=== PATIENT | female | born 1995 | race African-American/Black ===

== ENCOUNTER 2020-02-24 16:49 | Inpatient (IN) | payer MEDICAID, OTHER ==
[~2020-02-24] VITALS: Ht 165.1 cm; Wt 47.2 kg
[2020-02-24] MEDS ORDERED: IV NS 0.9% 1,000 ML BAG IV ONE (17:00)
[2020-02-24] MEDS ORDERED: ONDANSETRON HCL/PF 4 MG/2 ML VIAL IVP ONE (17:00)
[2020-02-24] MEDS ORDERED: ONDANSETRON HCL/PF 4 MG/2 ML VIAL ONE ×2 (17:05→21:32)
--- NOTE | 2020-02-24 17:05 | NUR ---
URINE SPECIMEN COLLECTED AND SENT TO LAB.
[2020-02-24 17:14] LABS: BASOPHILS % (AUTO) 0.3 % (0.0-2.0); HEMATOCRIT 40 % (33-45); HEMOGLOBIN 13.1 g/dL (11.5-14.8); LYMPHOCYTES # (AUTO) 1.3 /CMM (0.8-4.8); LYMPHOCYTES % (AUTO) 13.9 % (20.0-44.0); MEAN CORPUSCULAR HGB CONC 33 g/dl (31.0-36.0); MEAN CORPUSCULAR VOLUME 93 fL (82-100); MONOCYTES # (AUTO) 0.4 /CMM (0.1-1.30); MONOCYTES % (AUTO) 4.2 % (2.0-12.0); NEUTROPHILS # (AUTO) 7.7 /CMM (1.8-8.9); NEUTROPHILS % (AUTO) 81.6 % (43.0-81.0); PLATELET COUNT (AUTO) 242 /CMM (150-450); RED BLOOD CELL COUNT(AUTO) 4.26 MIL/uL (4.0-5.2); WHITE BLOOD COUNT (AUTO) 9.4 K/uL (4.3-11.0)
--- NOTE | 2020-02-24 17:16 | NUR ---
BIBS FROM HOME TO ER BED 7. AAOX4. NOT IN RESP DISTRESS. AMBULATORY. CAME IN FOR RLQ ABDOMINAL PAIN, NAUSEA, VOMMITING AND DIARRHEA X 3 DAYS. PAIN IS RATED 10/10 SHARP INTERMITENT PAIN. PT REPORTS NAUSEA AND MULTIPLE EPISODES OF VOMMITING AND WATTERY DIARRHEA. URINE COLLECTED. MD WAS AT BEDSIDE FOR EVAL. ORDERS RECEIVED NOTED AND CARRIED OUT. IV LINE OBTAINED ON L AC 20G. BLOOD DRAWN AND GIVEN TO PAGINATOR. WILL CONTINUE TO MONITOR
[2020-02-24 17:29] LABS: ALBUMIN 4.5 g/dL (3.4-5.0); BILIRUBIN,DIRECT 0.2 mg/dL (0.0-0.2); BILIRUBIN,TOTAL 0.6 mg/dL (0.2-1.0); CALCIUM, SERUM 9.4 mg/dL (8.5-10.1); CREATININE 0.8 mg/dL (0.6-1.3); POTASSIUM 3.5 mmol/L (3.5-5.1); TOTAL PROTEIN, SERUM 8.6 g/dL (6.4-8.2)
[2020-02-24 17:36] LABS: APPEARANCE,URINE Slightly Cloudy (CLEAR); BILIRUBIN,URINE SMALL (NEGATIVE); BLOOD, URINE Moderate Ery/uL (NEGATIVE); COLOR,URINE Yellow (YELLOW); KETONES,URINE >=160 (NEGATIVE); LEUKOCYTE ESTERASE ,URINE Negative (NEGATIVE); NITRITE, URINE Negative (NEGATIVE); PH,URINE 5.5 (5.0-8.0); PROTEIN,URINE 30 mg/dl (NEGATIVE); UGLUCOSE Negative (NEGATIVE); UROBILINOGEN,URINE 0.2 EU/dL (0.2)
[2020-02-24 17:57] LABS: BACTERIA,URINE 1+ /HPF (None Seen); SQUAMOUS EPITHELIAL CELL,UR Moderate /HPF (None Seen); WBC,URINE 0-2 /HPF (0-3)
[2020-02-24 17:58] LABS: MUCUS,URINE Few /LPF (None Seen)
[2020-02-24] MEDS ORDERED: ACETAMINOPHEN 650 MG/20.3 ML UDC PO ONE (18:30)
[2020-02-24] MEDS ORDERED: ACETAMINOPHEN 650 MG/20.3 ML UDC ONE (18:37)
--- NOTE | 2020-02-24 19:23 | NUR ---
US AT BEDSIDE
--- NOTE | 2020-02-24 20:55 | NUR ---
GAVE MOVESHEET AND CLINICALS TO ADMITTING FOR INSURANCE AUTH
--- NOTE | 2020-02-24 21:19 | NUR ---
CALLED NURSING SUP FOR BED
[2020-02-24] MEDS ORDERED: MORPHINE SULFATE INJ 2 MG/ML DISP.SYRIN ONE (21:32)
[2020-02-24] MEDS ORDERED: IV NS 0.9% 1,000 ML IV ONE (22:00)
[2020-02-24] MEDS ORDERED: ONDANSETRON HCL/PF 4 MG/2 ML VIAL IV ONE (22:00)
[2020-02-24] MEDS ORDERED: MORPHINE SULFATE INJ 2 MG/ML DISP.SYRIN IV ONE (22:00)
--- NOTE | 2020-02-24 22:08 | NUR ---
REPORT GIVEN TO FAISAL OH FOR CLARK
[2020-02-24 22:21] VITALS: BP 109/49
--- NOTE | 2020-02-24 22:21 | NUR ---
PT TRANSPORTED TO UNIT ON [facility] WITH EMT AND RN AT BEDSIDE W/ ACLS PROTOCOL.
--- NOTE | 2020-02-24 22:21 | NUR ---
RN OPEN NOTES RECEIVED PT FROM ER VIA [facility]RES, TRANSFERRED TO BED. BED IS IN LOWEST LOCKED POSITION WITH SIDE RAILS UP X2, SEMI FOWLERS. PT ORIENTED TO ROOM. CALL LIGHT IS WITHIN REACH. A/O X4. NO SOB/ ACUTE RESPIRATORY DISTRESS NOTED. WILL CONTINUE TO MONITOR.
[2020-02-24] MEDS ORDERED: MORPHINE SULFATE INJ 2 MG/ML DISP.SYRIN IV PRN (23:00)
[2020-02-24] MEDS: IV D5/0.45 NACL 1,000 ML IV PRN (23:00)
[2020-02-24] MEDS ORDERED: ZOLPIDEM TARTRATE 5 MG TABLET PO PRN (23:00)
[2020-02-24] MEDS ORDERED: MAGNESIUM HYDROXIDE 30 ML UDC PO PRN (23:00)
[2020-02-24] MEDS ORDERED: HYDROCODONE/APAP 5/325MG 1 EACH TABLET PO PRN (23:00)
[2020-02-24] MEDS ORDERED: ACETAMINOPHEN 325 MG TABLET PO PRN (23:00)
[2020-02-24] MEDS ORDERED: MAG HYDROX/AL HYDROX/SIMETH 30 ML UDC PO PRN (23:00)
[2020-02-24] MEDS ORDERED: Z GUARD REMEDY 2 OZ OINT TP PRN (23:00)
[2020-02-24] MEDS ORDERED: ONDANSETRON HCL/PF 4 MG/2 ML VIAL IVP PRN (23:00)
[2020-02-25] MEDS: IV D5/0.45 NACL 1,000 ML IV PRN (05:47)
--- NOTE | 2020-02-25 06:42 | NUR ---
RN CLOSE NOTES PATIENT IS LAYING IN BED, A/O X4. ON RA, NO SOB/ ACUTE RESPIRATORY DISTRESS NOTED. APPEARS COMFORTABLE/ NO COMPLAINTS OF PAIN AT THE MOMENT. IV ON L AC #20G IS PATENT AND INTACT, RUNNING D5 1/2 NS @ 125MLS/HR. BED IS IN LOWEST LOCKED POSITION WITH SIDE RAILS UP X2, SEMI FOWLERS. CALL LIGHT IS WITHIN REACH. WILL ENDORSE TO AM NURSE.
--- NOTE | 2020-02-25 07:00 | NUR ---
BEAMER HELPER OPENING NOTES Received PATIENT IS LAYING IN BED, A/O X4. ON RA, NO SOB Noted, No s/s of any acute DISTRESS NOTED. PT APPEARS COMFORTABLE/ NO COMPLAINTS OF PAIN AT THE MOMENT. IV ON L AC #20G, PATENT AND INTACT, RUNNING D5 1/2 NS @ 125MLS/HR. BED IS IN LOWEST LOCKED POSITION WITH SIDE RAILS UP X2, HOB ELEVATED TO SEMI FOWLERS POSITION. CALL LIGHT IS WITHIN REACH. WILL CONTINUE TO MONITOR
[2020-02-25 07:07] LABS: BASOPHILS % (AUTO) 0.4 % (0.0-2.0); EOSINOPHILS % (AUTO) 1.1 % (0.0-6.0); HEMATOCRIT 30 % (33-45); LYMPHOCYTES # (AUTO) 1.9 /CMM (0.8-4.8); LYMPHOCYTES % (AUTO) 31.3 % (20.0-44.0); MEAN CORPUSCULAR HGB CONC 34 g/dl (31.0-36.0); MEAN CORPUSCULAR VOLUME 93 fL (82-100); MONOCYTES # (AUTO) 0.5 /CMM (0.1-1.30); MONOCYTES % (AUTO) 7.6 % (2.0-12.0); NEUTROPHILS # (AUTO) 3.6 /CMM (1.8-8.9); NEUTROPHILS % (AUTO) 59.6 % (43.0-81.0); PLATELET COUNT (AUTO) 172 /CMM (150-450); RED BLOOD CELL COUNT(AUTO) 3.22 MIL/uL (4.0-5.2)
[2020-02-25 07:24] LABS: CALCIUM, SERUM 7.6 mg/dL (8.5-10.1); CREATININE 0.7 mg/dL (0.6-1.3); MAGNESIUM 1.5 mg/dL (1.8-2.4); POTASSIUM 2.9 mmol/L (3.5-5.1)
[2020-02-25 07:32] LABS: THYROID STIMULATING HORMONE 1.54 uIU/mL (0.358-3.74)
[2020-02-25 08:30] VITALS: BP 114/64
--- NOTE | 2020-02-25 09:30 | NUR ---
PT SEEN BY DR RENTERIA. PER DR RENTERIA,, GET PT READY FOR LAPAROSCOPY WITH POSSIBLE SALPINGECTOMY/SALPINGOTOMY. PT SIGNED CONSENT FOR ANESTHESIA, PROCEDURE, BLOOD AND VERBALIZED UNDERSTANDING DOCTORS EDUCATION ON BENEFITS AND RISK. PREOP CHECK LIST DONE, VITALS SIGNS TAKEN AND STABLE.
[2020-02-25] MEDS: PANTOPRAZOLE 40 MG TABLET.DR PO SCH (09:49)
[2020-02-25] MEDS: Magnesium 1GM/D5W 100ML PREMIX 100 ML IV SCH ×2 (10:19→11:21)
[2020-02-25] MEDS: POTASSIUM CHLORIDE 20 MEQ TAB.PRT.SR PO SCH ×3 (10:20→12:30)
[2020-02-25] MEDS ORDERED: POTASSIUM CL. PREMIX PERIPHER. 50 ML IV STA (10:49)
--- NOTE | 2020-02-25 10:49 | NUR ---
PT POTASSIUM OF 2.9. DR PALACIO ORDERED POTASSIUM IV 20 meq STAT. ORDERS CARRIED OUT. WILL CONTINUE TO MONITOR
[2020-02-25] MEDS ORDERED: MIDAZOLAM HCL 2 MG/2ML VIAL ONE (11:52)
[2020-02-25] MEDS ORDERED: SCOPOLAMINE HBR 1 EA PATCH.TD72 TD ONE (11:52)
[2020-02-25] MEDS ORDERED: FENTANYL PF 100MCG/2ML AMPUL ONE ×2 (11:52→13:32)
[2020-02-25] MEDS ORDERED: DESFLURANE 240 ML BOTTLE IH ONE (11:53)
[2020-02-25] MEDS ORDERED: SEVOFLURANE 250 ML BOTTLE IH ONE (11:53)
--- NOTE | 2020-02-25 12:00 | NUR ---
PT OUT OF ROOM AT THIS TIME FOR LAPAROSCOPY WITH POSSIBLE SALPINGECTOMY/SALPINGOTOMY PROCEDURE. PT TRANSPORTED BY BED WITH ACLS PROTOCOLS TO OR.
[2020-02-25] MEDS ORDERED: BUPIVACAINE 0.5 % PF 150 MG/30 ML VIAL ONE (12:36)
[2020-02-25] MEDS ORDERED: BUPIVACAINE MPF 0.5% W/EPI INJ 30 ML VIAL ONE (12:36)
[2020-02-25] MEDS ORDERED: oxyCODONE/APAP (5/325 MG) 1 UDTAB TABLET PO PRN ×2 (14:00)
[2020-02-25] MEDS ORDERED: ONDANSETRON HCL/PF 4 MG/2 ML VIAL IVP PRN (14:00)
[2020-02-25] MEDS ORDERED: IV LR 1000 ML 1,000 ML IV PRN (14:00)
[2020-02-25] MEDS ORDERED: HYDROMORPHONE 1 MG/1 ML DISP.SYRIN IV PRN (14:00)
--- NOTE | 2020-02-25 14:24 | NUR ---
PT ABDOMINAL ASSESSMENT DONE, ACTIVE BOWEL SOUNDS HEARD ON ALL FOUR QUADRANTS. PT STATED " SHE PASS OUT SOME GAS" WILL CONTINUE TO MONITOR
--- NOTE | 2020-02-25 14:25 | NUR ---
PT TRANSPORTED TO ROOM FROM OR BY BED. ACCOMPANIED BY TWO NURSES S/P SCOPE PARTIAL RIGHT SIDE SALPINGECTOMY/SALPINGOTOMY. VS STABLE. BP 114/59, RR 18 HR 71, TEMP 97.3, SPO2 98%. PER OR NURSE, PT AWAKE, AO X4, NO ACUTE DISTRESS NOTED, ABDOMINAL SIDE CLEAN, DRY AND [address] HANDY CATHETER IN PLACE DRAINING TO GRAVITY CLEAR YELLOW URINE OUTPUT TO BE REMOVED. ABDOMEN IS SOFT, NO BLEEDING NOTED AT ABDOMEN OR PERINEUM. WILL CONTINUE TO MONITOR
--- NOTE | 2020-02-25 14:25 | NUR ---
PER DR RENTERIA, ADVANCE DIET TOLERATED. PT ORDERED CHANGED FROM NPO TO CLEAR LIQUID AT THIS TIME. WILL CONTINUE TO MONITOR AND ADVANCE DIET PER ORDER
--- NOTE | 2020-02-25 15:55 | NUR ---
PT HANDY CATHETER REMOVED PER ORDER WITH CLEAR YELLOW URINE OUTPUT OF 1300CC. PT ABLE TO VOID ON HER OWN WITHOUT HANDY CATHETER IN PLACE. WILL CONTINUE TO MONITOR
--- NOTE | 2020-02-25 16:43 | NUR ---
PT ON CLEAR LIQUID DURING LUNCH AND TOLERATING WELL. PT ADVANCED TO FULL LIQUIDS PER ODER. WILL CONTINUE TO MONITOR.
[2020-02-25 17:28] VITALS: BP 122/68
[2020-02-25] MEDS: HYDROMORPHONE INJ 2 MG/ML DISP.SYRIN IV PRN ×2 (17:39→23:10)
--- NOTE | 2020-02-25 18:45 | NUR ---
PT HAVING LIQUID BROWN VAGINAL DISCHARGE. NO FOUL SMELLL NOTED. WILL CONTINUE TO MONITOR
--- NOTE | 2020-02-25 19:05 | NUR ---
MS RN OPENING NOTES PATIENT IS LAYING IN BED COMFORTABLY, A/O X4. ON RA, NO SOB Noted, No s/s of any acute DISTRESS NOTED. NO COMPLAINTS OF PAIN AT THE MOMENT. IV ON L AC #20G, PATENT AND INTACT, RUNNING LR@ 100MLS/HR. PT KEPT CLEAN AND DRY. ALL CARE, MEDICATIONS AND PAIN MANAGEMENT ADMINISTERED ANTICIPATED. BED IS IN LOWEST LOCKED POSITION WITH SIDE RAILS UP X2, HOB ELEVATED TO SEMI FOWLERS POSITION. CALL LIGHT IS WITHIN REACH. WILL ENDORSE TO SILVER SOLDERER NURSE FOR [facility]ARK
--- NOTE | 2020-02-25 19:45 | NUR ---
MS RN OPENING NOTES RECEIVED PATIENT RESTING IN BED COMFORTABLY; A/OX4; TOLERATING ROOM AIR WELL; NO SOB NOTED; BREATHING EVEN AND UNLABORED; L AC #20 INTACT AND PATENT; FLUSHING WELL; INFUSING LR 100ML/HR; ABLE TO MAKE NEEDS KNOWN; SAFETY PRECAUTIONS IMPLEMENTED; BED LOCKED IN LOW POSITION; SIDE RAILS X2; CALL LIGHT WITHIN REACH; WILL CONT PLAN OF CARE AND CONT TO MONITOR
[2020-02-25 20:00] VITALS: BP 112/63
--- NOTE | 2020-02-25 20:38 | NUR ---
MS RN NOTES PATIENT REQUESTING SANDWICH TO EAT; PATIENT TOLERATING FULL LIQUID AND SOFT DIET; CHARGE NURSE AWARE; PATIENT ON REGULAR DIET
--- NOTE | 2020-02-25 23:10 | NUR ---
MS RN NOTES PATIENT REPORTED 8/10 PAIN IN ABDOMEN; PATIENT DECLINED NORCO BECAUSE SHE IS UNABLE TO SWALLOW PAIN PILL; PATIENT A/OX4; VITALS STABLE; WILL ADMINISTER DILAUDID IVP PER MD ORDER; WILL CONT TO MONITOR
--- NOTE | 2020-02-26 03:22 | NUR ---
MS RN NOTES LR @ 100ML/HR ENDED; PATIENT DECLINED FOR NEW IV FLUIDS; PATIENT A/OX4; PATIENT EDUCATED, RISKS/BENEFITS DISCUSSED AND REVIEWED; PATIENT IS AWARE BUT STILL DECLINES; PATIENT REPORTED SHE IS ABLE TO DRINK WATER AND HAS BEEN DRINKING A LOT OF FLUIDS POST OP; WILL CONT TO MONITOR
--- NOTE | 2020-02-26 06:44 | NUR ---
MS RN CLOSING NOTES PATIENT RESTING IN BED COMFORTABLY; A/OX4; ABLE TO MAKE NEEDS KNOWN; BREATHING EVEN AND UNLABORED; NO SOB NOTED; PATIENT TOLERATING ROOM AIR WELL; L AC #20 INTACT AND PATENT; FLUSHING WELL; NO S/S OF REDNESS OR INFILTRATION NOTED; PATIENT DOES NOT WANT IVF ANYMORE; RISK/BENEFITS DISCUSSED; PATIENT STILL DECLINED; WILL INFORM ONCOMING SHIFT; ALL NEEDS RENDERED; BED LOCKED IN LOW POSITION; SIDE RAILS X2; CALL LIGHT WITHIN REACH; WILL ENDORSE [facility] TO ONCOMING SHIFT
--- NOTE | 2020-02-26 07:40 | NUR ---
MS RN OPENING NOTES RECEIVED PT IN BED, ASLEEP, EASILY AROUSED, A/O X4. PT ON RA, WITH NO ACUTE RESPIRATORY DISTRESS NOTED. PT DENIES ANY PAIN OR DISCOMFORT AT THIS TIME. PT DENIES ANY CONCERNS OR QUESTIONS AT THIS TIME. IVF LR AT 100ML/HR TO LAC G20, INTACT AND OPERATIONAL.PT KEPT COMFORTABLE. CALL LIGHT KEPT WITHIN REACH. PT'S BED IN LOWEST, LOCKED POSITION WITH SRX3. WILL CONTINUE PLAN OF CARE.
[2020-02-26 08:00] VITALS: BP 91/51
[2020-02-26] MEDS: PANTOPRAZOLE 40 MG TABLET.DR PO SCH (08:08)
[2020-02-26] MEDS ORDERED: OXYC1TAB8 PO (11:24)
[2020-02-26] MEDS ORDERED: ONDA4TAB5 PO (11:47)
[2020-02-26 13:48] LABS: BASOPHILS % (AUTO) 0.5 % (0.0-2.0); EOSINOPHILS % (AUTO) 0.8 % (0.0-6.0); HEMATOCRIT 28 % (33-45); HEMOGLOBIN 9.2 g/dL (11.5-14.8); LYMPHOCYTES # (AUTO) 2.7 /CMM (0.8-4.8); LYMPHOCYTES % (AUTO) 41.8 % (20.0-44.0); MEAN CORPUSCULAR HGB CONC 33 g/dl (31.0-36.0); MEAN CORPUSCULAR VOLUME 93 fL (82-100); MONOCYTES # (AUTO) 0.4 /CMM (0.1-1.30); MONOCYTES % (AUTO) 6.3 % (2.0-12.0); NEUTROPHILS # (AUTO) 3.3 /CMM (1.8-8.9); NEUTROPHILS % (AUTO) 50.6 % (43.0-81.0); PLATELET COUNT (AUTO) 164 /CMM (150-450); RED BLOOD CELL COUNT(AUTO) 2.97 MIL/uL (4.0-5.2); WHITE BLOOD COUNT (AUTO) 6.5 K/uL (4.3-11.0)
--- NOTE | 2020-02-26 15:39 | NUR ---
MS QUALITY ASSURANCE MONITOR CHASSIS NOTES PT AWAKE, A/O X4. PT ON RA, WITH NO ACUTE RESPIRATORY DISTRESS NOTED. PT DENIES ANY PAIN OR DISCOMFORT AT THE TIME OF DISCHARGE. PIV TO LAC G20, REMOVED AND APPLIED DRY DRESSING. PT TO DISCHARGE HOME, BY HERSELF, LEAVING VIA UBER. PT REVIEWED AND SIGNED DISCHARGE INSTRUCTIONS AND INVENTORY LIST. ALL BELONGINGS WITH THE PT. ABDOMINAL INCISIONS PEREST S/P SALPHINGECTOMY, PICTURES TAKEN AND FILED IN THE CHART. INCISIONS CLEANED WITH NS PAT DRY AND DRESSING REPLACED. PRESCRIPTIONS GIVEN TO PT. ALL NEEDS AND CARE ATTENDED AND PROVIDED. GAVE COPY OF DR. RENTERIA'S OFFICE NUMBER FOR FOLLOW UP. HOSPITALIST/CLAY PROCESSING LABOURER/LW AND CN/BIANCA AWARE OF DISCHARGE. PT LEFT THE UNIT AT 1530. RN ESCORTED PT TO THE LOBBY VIA WHEELCHAIR AND WITNESSED PT WENT TO THE UBER'S CAR.
== END 2020-02-26 15:30 | disposition home or self-care (01) | DRG 545 ==
LOC: ER 16:53 → TELE 21:59 → UNDODISIN 02-25 17:50 → MED 02-25 18:07
PROVIDERS: ADMIT Student in an Organized Health Care Education/Training Program; ATTEND Registered Nurse
DX: O00.101 Right tubal pregnancy without intrauterine pregnancy (principal); K66.1 Hemoperitoneum; E87.1 Hypo-osmolality and hyponatremia; Z87.891 Personal history of nicotine dependence; E87.6 Hypokalemia
CPT/HCPCS: 36415; 76856-TC; 80048-TC; 80061-TC; 80076-TC; 81000-TC; 83690-TC; 83735-TC; 84100-TC; 84443-TC; 84702-TC; 84703-TC; 85025-TC; 86850-TC; 87081-TC; 88305-TC; A6402; G0378; J0330; J1100; J1170; J2250; J2270; J2405; J2704; J2710; J3010; J3475; J3480; J3490; J7030; J7050; J7120